=== PATIENT | male | born 1955 ===

== ENCOUNTER 2018-12-25 09:53 | Inpatient (IN) | payer MEDICARE, OTHER ==
[2018-12-25 10:01] VITALS: BMI 31.8
[2018-12-25] MEDS ORDERED: Albuterol-Ipratrop 3 mg / 0.5 (3 ml) UD IH STA (10:48)
[2018-12-25] MEDS ORDERED: Albuterol-Ipratrop 3 mg / 0.5 (3 ml) UD INH STA (10:48)
--- NOTE | 2018-12-25 11:04 | ED PDOC ---
HPI: SOB/CHF/COPD Time Seen by Provider: 12/25/18 10:05 Chief Complaint (Nursing): Shortness Of Breath Chief Complaint (Provider): Shortness Of Breath History Per: Patient, Family History/Exam Limitations: no limitations Onset/Duration Of Symptoms: Days Current Symptoms Are (Timing): Still Present Additional Complaint(s): 63 y/o male with a PMHx of Atrial Fibrillation sent to the ED by [place] [employer] [place] for evaluation of a rapid heart rate. Patient's reports patient was at an appointment with Dr. Murphy prior to arrival and was noted to have a rapid heart rate and fluid in the lungs associated with shortness of breath, swelling to the lower extremity and a cough for the past three days. Patient is non-compliant with Metropolol and Losartan as per . Otherwise, patient denies chest pain, headache, dizziness, weakness, nausea, vomiting and diarrhea. PMD: no provider Buffer Automatic: Shaan Murphy. Past Medical History Reviewed: Historical Data, Nursing Documentation, Vital Signs Vital Signs: Last Vital Signs Temp 98 F 12/25/18 10:00 Pulse 139 H 12/25/18 10:00 Resp 18 12/25/18 10:13 BP 146/96 H 12/25/18 10:00 Pulse Ox 98 12/25/18 10:13 Primary Care Provider: Shaan Murphy - Medical History PMH: Atrial Fibrillation, CHF, HTN - Surgical History Surgical History: No Surg Hx - Family History Family History: States: Unknown Family Hx - Home Medications Home Medications: Ambulatory Orders Medication Instructions Recorded Metoprolol Succinate XL [Toprol XL] 25 mg PO DAILY 12/25/18 - Allergies Allergies/Adverse Reactions: Allergies Allergy/AdvReac Type Severity Reaction Status Date / Time No Known Allergies Allergy Verified 12/25/18 10:06 Review of Systems ROS Statement: Except As Marked, All Systems Reviewed And Found Negative Cardiovascular: Positive for: Other (tachycardia). Negative for: Chest Pain Respiratory: Positive for: Cough, Shortness of Breath Gastrointestinal: Negative for: Nausea, Vomiting, Diarrhea Musculoskeletal: Positive for: Foot Pain (swelling bilaterally) Neurological: Negative for: Headache, Dizziness Physical Exam - Reviewed Nursing Documentation Reviewed: Yes Vital Signs Reviewed: Yes - Physical Exam Appears: Positive for: Uncomfortable Head Exam: Positive for: ATRAUMATIC, NORMOCEPHALIC Skin: Positive for: Normal Color, Warm, Dry Eye Exam: Positive for: Normal appearance, EOMI, PERRL ENT: Positive for: Normal ENT Inspection. Negative for: Nasal Congestion Neck: Positive for: Normal, Painless ROM, Supple Cardiovascular/Chest: Positive for: Tachycardia, Irregularly Irregular Respiratory: Positive for: Decreased Breath Sounds, Other (coarse breath sounds b/l). Negative for: Respiratory Distress Gastrointestinal/Abdominal: Positive for: Normal Exam, Soft. Negative for: Tenderness Back: Positive for: Normal Inspection. Negative for: L CVA Tenderness, R CVA Tenderness Extremity: Positive for: Normal ROM, Pedal Edema (1+ b/l). 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 Negative for: Motor/Sensory Deficits, Facial Droop - Laboratory Results Result Diagrams: 12/25/18 10:57 12/25/18 10:57 Interpretation Of Abn Labs: probnp elevated - ECG ECG: Positive for: Interpreted By Me, Viewed By Me ECG Rhythm: Positive for: Atrial Fibrillation O2 Sat by Pulse Oximetry: 98 (RA) Pulse Ox Interpretation: Normal - Radiology X-Ray: Read By Radiologist X-Ray Interpretation: No Acute Disease - Progress ED Course And Treament: 1200: Stable. Continue tx. HR improving. Will do cardizem drip. 1320: Stable. HR controlled with cardizem. WIll give ntg and lasix for chf. Dr. Jeffrey ovalle. Spoke to Dr. Ornelas and agrees with plan. Will admit. - Critical Care Total Time (In Min): 30 Documented Critical Care: Time excludes all time spent performint seperately billable procedures Medical Decision Making Medical Decision Making: Time: 1049 Impression: Atrial Fibrillation and CHF Plan: -- VBG -- EKG -- B-Type Natriuretic Peptide -- CMP -- Magnesium -- Phosphorus -- Troponin I -- CBC with Differentials -- PTT -- Prothrombin Time -- CXR Portable XR -- Cardizem 10 mg IVP -- Duoneb 3mg/0.5mg (3ml) UD 3 ml INH -- Duoneb 3mg/0.5mg (3ml) UD 3 ml IH -- SOLU-Medrol 125 mg IVP -- Blood Culture -- Urine Culture -- Lease Operator -- IV Insertion -- Vital Signs Q15M -- Peak Flow Pre/Post Tx -- Urinalysis Scribe Attestation: Documented by Kirstie Ray, acting as a scribe Wiley Tijerina MD. Provider Scribe Attestation: All medical record entries made by the Scribe were at my direction and personally dictated by me. I have reviewed the chart and agree that the record accurately reflects my personal performance of the history, physical exam, medical decision making, and the department course for this patient. I have also personally directed, reviewed, and agree with the discharge instructions and disposition. Disposition - Clinical Impression Clinical Impression: CHF exacerbation, Afib - Patient ED Disposition Is Patient to be Admitted: Yes Counseled Patient/Family Regarding: Studies Performed, Diagnosis - Disposition Disposition Time: 10:30 Condition: FAIR - Pt Status Changed To: Hospital Disposition Of: Inpatient - Admit Certification Admit to Inpatient:: After my assessment, the patient will require hospitalization for at least two midnights. This is because of the severity of symptoms shown, intensity of services needed, and/or the medical risk in this patient being treated as an outpatient. - POA Present On Arrival: None
[2018-12-25] MEDS ORDERED: Albuterol-Ipratrop 3 mg / 0.5 (3 ml) UD ONE (11:08)
[2018-12-25 11:14] LABS: VENOUS BLOOD GAS BASE EXCESS 0.3 mmol/L (0.0-2.0); VENOUS BLOOD GAS PCO2 32 mmHg (40-60); VENOUS BLOOD GAS PO2 71 mm/Hg (30-55); VENOUS BLOOD PH 7.47 (7.32-7.43)
[2018-12-25 11:28] LABS: BASO # 0.1 K/uL (0.0-0.2); BASO % 0.6 % (0.0-2.0); EOS % 0.4 % (0.0-4.0); HEMOGLOBIN 12.4 g/dL (12.0-18.0); LYMPH # 1.4 K/uL (1.0-4.3); MEAN CELL VOLUME 91.3 fl (80.0-94.0); MEAN CORPUSCULAR HEMOGLOBIN 30.4 pg (27.0-31.0); MEAN CORPUSCULAR HGB CONC 33.2 g/dL (33.0-37.0); MEAN PLATELET VOLUME 8.7 fl (7.2-11.7); MONO # 0.5 K/uL (0.0-0.8); MONO % 5.6 % (0.0-10.0); NEUT # 7.7 K/uL (1.8-7.0); NEUT % 79.4 % (50.0-75.0); RBC 4.1 Mil/uL (4.40-5.90); RED CELL DISTRIBUTION WIDTH 14.5 % (11.5-14.5); WHITE BLOOD COUNT 9.7 K/uL (4.8-10.8)
[2018-12-25 11:41] LABS: ALB/GLOB RATIO 1.2 (1.0-2.1); ALT/SGPT 63 U/L (21-72); AST/SGOT 54 U/L (17-59); BLOOD UREA NITROGEN 27 mg/dl (9-20); GFR NON-AFRICAN AMERICAN > 60; INR 1.3; PROTHROMBIN TIME 14.5 Seconds (9.8-13.1)
[2018-12-25 11:52] LABS: B-TYPE NATRIURETIC PEPTIDE 6360 pg/ml (0-900)
--- NOTE | 2018-12-25 13:07 | RAD ---
Date of service: 12/25/2018 HISTORY: Sepsis Patient COMPARISON: No prior. TECHNIQUE: 1 view obtained. FINDINGS: LUNGS: No active pulmonary disease. PLEURA: No significant pleural effusion identified, no pneumothorax apparent. CARDIOVASCULAR: No aortic atherosclerotic calcification present. Normal cardiac size. No pulmonary vascular congestion. OSSEOUS STRUCTURES: There is some deformity of the right 5th rib laterally which may reflect an old fracture. VISUALIZED UPPER ABDOMEN: Normal. OTHER FINDINGS: None. IMPRESSION: No active disease.
[2018-12-25] MEDS ORDERED: Aspirin 325 mg EC Tablets PO ONE (13:44)
--- NOTE | 2018-12-25 14:17 | CP.PCM.HP ---
<BoraharmonyYvan zambrano - Last Filed: 12/25/18 14:50> History of Present Illness - History of Present Illness History of Present Illness: CC: johnny been very short of breathe for the last three days HPI: 63 y/o male with PMHx of HTN presented for evaluation from Dr. Murphy's office for worsening SOB and palpitations. Pt reports symptoms started 3 days ago, without any inciting or triggering event. Pt reports SOB has been worsening and he has been having associated orthopnea and CARTER. He reports he lives on the 4th floor and is usually able to walk up without issue, but recently has had to take multiple breaks. He reports practically sleeping upright for the last 3 days on his couch. Reports adherence with metoprolol 25mg QD. Denies having a PMD and reports having seen cardiology in history prior. Reports history of tobacco abuse, but quit >30 years ago. Denies ETOH/Drug abuse. Denies hx of ID/cardiac cath. No other complaints/concerns. ROS: 12 systems reviewed, found to be negative unless otherwise mentioned in HPI PMD: none Cardio: Jeffrey PMHx: HTN Meds: Metoprolol, losartan ALL: NKDA Psurghx: right inguinal hernia repair FamilyHx: denies ID/Stroke/DM/CA/HTN Social: Former smoker, >1ppd for >10 years, quit 30 years ago, denies ETOH/drug abuse Present on Admission - Present on Admission Any Indicators Present on Admission: No History of DVT/PE: No History of Uncontrolled Diabetes: No Urinary Catheter: No Decubitus Ulcer Present: No Past Patient History - Past Social History Smoking Status: Former Smoker Alcohol: None Drugs: Denies Home Situation {Lives}: With Family - CARDIAC Hx Atrial Fibrillation: Yes Hx Congestive Heart Failure: Yes Hx Hypertension: Yes - PSYCHIATRIC Hx Substance Use: No - SURGICAL HISTORY Hx Surgeries: Yes Hx Herniorrhaphy: Yes (right groin) Meds Allergies/Adverse Reactions: Allergies Allergy/AdvReac Type Severity Reaction Status Date / Time No Known Allergies Allergy Verified 12/25/18 10:06 Physical Exam - Constitutional Appears: Non-toxic, No Acute Distress - Head Exam Head Exam: ATRAUMATIC, NORMOCEPHALIC Additional comments: large cyst overlying superior frontal bone - Eye Exam Eye Exam: EOMI, Normal appearance, PERRL - ENT Exam ENT Exam: Mucous Membranes Moist - Neck Exam Neck exam: Positive for: Full Rom, Normal Inspection. Negative for: Lymphadenopathy, Tenderness, Thyromegaly - Respiratory Exam Respiratory Exam: Decreased Breath Sounds, Rales, Wheezes, NORMAL BREATHING PATTERN. absent: Accessory Muscle Use, Clear to Auscultation Bilateral, Prolonged Expiratory Phase, Rhonchi, Respiratory Distress - Cardiovascular Exam Cardiovascular Exam: Irregular Rhythm, +S1, +S2. absent: JVD, Systolic Murmur - GI/Abdominal Exam GI & Abdominal Exam: Normal Bowel Sounds, Soft - Extremities Exam Extremities exam: Positive for: normal capillary refill, normal inspection, pedal pulses present. Negative for: calf tenderness, pedal edema, tenderness - Neurological Exam Neurological exam: Alert, CN II-XII Intact, Normal Gait, Oriented x3 - Psychiatric Exam Psychiatric exam: Normal Affect, Normal Mood - Skin Skin Exam: Dry, Intact, Normal Color, Warm Results - Vital Signs Recent Vital Signs: Last Vital Signs Temp 98 F 12/25/18 10:00 Pulse 130 H 12/25/18 14:04 Resp 20 12/25/18 14:04 BP 138/109 H 12/25/18 14:04 Pulse Ox 96 12/25/18 14:04 - Labs Result Diagrams: 12/25/18 10:57 12/25/18 10:57 Labs: Laboratory Results - last 24 hr 12/25/18 12/25/18 12/25/18 10:57 10:57 10:57 WBC 9.7 RBC 4.10 L Hgb 12.4 Hct 37.4 MCV 91.3 MCH 30.4 MCHC 33.2 RDW 14.5 Plt Count 269 MPV 8.7 Neut % (Auto) 79.4 H Lymph % (Auto) 14.0 L Lares % (Auto) 5.6 Eos % (Auto) 0.4 Baso % (Auto) 0.6 Neut # (Auto) 7.7 H Lymph # (Auto) 1.4 Lares # (Auto) 0.5 Eos # (Auto) 0.0 Baso # (Auto) 0.1 PT 14.5 H INR 1.3 APTT 32.0 pO2 VBG pH VBG pCO2 VBG HCO3 VBG Total CO2 VBG O2 Sat (Calc) VBG Base Excess VBG Potassium Glucose Lactate FiO2 Sodium 138 Potassium 4.0 Chloride 103 Carbon Dioxide 23 Anion Gap 16 BUN 27 H Creatinine 1.1 Est GFR ( Amer) > 60 Est GFR (Non-Af Amer) > 60 Random Glucose 128 H Calcium 9.0 Phosphorus 3.8 Magnesium 1.9 Total Bilirubin 1.1 AST 54 ALT 63 Alkaline Phosphatase 114 Troponin I 0.0620 NT-Pro-B Natriuret Pep 6360 H Total Protein 7.4 Albumin 4.0 Globulin 3.4 Albumin/Globulin Ratio 1.2 Venous Blood Potassium 12/25/18 11:07 WBC RBC Hgb Hct MCV MCH MCHC RDW Plt Count MPV Neut % (Auto) Lymph % (Auto) Lares % (Auto) Eos % (Auto) Baso % (Auto) Neut # (Auto) Lymph # (Auto) Lares # (Auto) Eos # (Auto) Baso # (Auto) PT INR APTT pO2 71 H VBG pH 7.47 H VBG pCO2 32 L VBG HCO3 25.1 VBG Total CO2 24.3 VBG O2 Sat (Calc) 96.5 H VBG Base Excess 0.3 VBG Potassium 4.0 Glucose 111 H Lactate 1.2 FiO2 21.0 Sodium 137.0 Potassium Chloride 106.0 Carbon Dioxide Anion Gap BUN Creatinine Est GFR ( Amer) Est GFR (Non-Af Amer) Random Glucose Calcium Phosphorus Magnesium Total Bilirubin AST ALT Alkaline Phosphatase Troponin I NT-Pro-B Natriuret Pep Total Protein Albumin Globulin Albumin/Globulin Ratio Venous Blood Potassium 4.0 Assessment & Plan - Assessment and Plan (Free Text) Assessment: 63 y/o male with PMHx of HTN admitted for new onset CHF and atrial fibrillation with RVR. Plan: Atrial Fibrillation w RVR -EKG: Afib w RVR ~143bpm -BP stable -CHADS-VASC: 2pts -c/w ASA -s/p cardizem bolus 10mg -currently on cardizem drip, 8mg/hr -initial troponin negative, trending Q6H -TSH/Lipid panel/Urine tox/Hba1c pending -tele monitoring -cardiology consult requested Acute Onset CHF -uncertain if diastolic or systolic dysfunction -no prior history -Pro-BNP: 6360 -BUN/Cr: 27/1.1 -stable H/H, CMP wnl -CXR: mild cardiomegaly, air bronchograms, pulmonary congestion -Echocardiogram pending -Lasix IV 40 mg Q12H -started CLAUDIA/Statin therapy -cardiology consult requested -repeat AM labs HTN -uncontrolled -started lisinopril 10mg QD Diet -heart healthy Prophylaxis -Lovenox 40mg SC QD Code Status -full code <Max Ornelas - Last Filed: 12/25/18 20:16> Results - Vital Signs Recent Vital Signs: Last Vital Signs Temp 98.2 F 12/25/18 19:43 Pulse 85 12/25/18 19:43 Resp 18 12/25/18 19:43 BP 128/92 H 12/25/18 19:43 Pulse Ox 98 12/25/18 19:43 - Labs Result Diagrams: 12/25/18 10:57 12/25/18 10:57 Labs: Laboratory Results - last 24 hr 12/25/18 12/25/18 12/25/18 10:57 10:57 10:57 WBC 9.7 RBC 4.10 L Hgb 12.4 Hct 37.4 MCV 91.3 MCH 30.4 MCHC 33.2 RDW 14.5 Plt Count 269 MPV 8.7 Neut % (Auto) 79.4 H Lymph % (Auto) 14.0 L Lares % (Auto) 5.6 Eos % (Auto) 0.4 Baso % (Auto) 0.6 Neut # (Auto) 7.7 H Lymph # (Auto) 1.4 Lares # (Auto) 0.5 Eos # (Auto) 0.0 Baso # (Auto) 0.1 PT 14.5 H INR 1.3 APTT 32.0 pO2 VBG pH VBG pCO2 VBG HCO3 VBG Total CO2 VBG O2 Sat (Calc) VBG Base Excess VBG Potassium Glucose Lactate FiO2 Sodium 138 Potassium 4.0 Chloride 103 Carbon Dioxide 23 Anion Gap 16 BUN 27 H Creatinine 1.1 Est GFR ( Amer) > 60 Est GFR (Non-Af Amer) > 60 Random Glucose 128 H Calcium 9.0 Phosphorus 3.8 Magnesium 1.9 Total Bilirubin 1.1 AST 54 ALT 63 Alkaline Phosphatase 114 Troponin I 0.0620 NT-Pro-B Natriuret Pep 6360 H Total Protein 7.4 Albumin 4.0 Globulin 3.4 Albumin/Globulin Ratio 1.2 Triglycerides Cholesterol LDL Cholesterol Direct HDL Cholesterol TSH 3rd Generation Venous Blood Potassium Urine Color Urine Clarity Urine pH Ur Specific [place] Urine Protein Urine Glucose (UA) Urine Ketones Urine Blood Urine Nitrate Urine Bilirubin Urine Urobilinogen Ur Leukocyte Esterase Urine RBC (Auto) Urine Microscopic WBC Ur Squamous Epith Cells Urine Bacteria Hyaline Casts Granular Casts (Auto) Urine Opiates Screen Urine Methadone Screen Ur Barbiturates Screen Ur Phencyclidine Scrn Ur Amphetamines Screen U Benzodiazepines Scrn U Oth Cocaine Metabols U Cannabinoids Screen 12/25/18 12/25/18 12/25/18 11:07 14:54 15:00 WBC RBC Hgb Hct MCV MCH MCHC RDW Plt Count MPV Neut % (Auto) Lymph % (Auto) Lares % (Auto) Eos % (Auto) Baso % (Auto) Neut # (Auto) Lymph # (Auto) Lares # (Auto) Eos # (Auto) Baso # (Auto) PT INR APTT pO2 71 H VBG pH 7.47 H VBG pCO2 32 L VBG HCO3 25.1 VBG Total CO2 24.3 VBG O2 Sat (Calc) 96.5 H VBG Base Excess 0.3 VBG Potassium 4.0 Glucose 111 H Lactate 1.2 FiO2 21.0 Sodium 137.0 Potassium Chloride 106.0 Carbon Dioxide Anion Gap BUN Creatinine Est GFR ( Amer) Est GFR (Non-Af Amer) Random Glucose Calcium Phosphorus Magnesium Total Bilirubin AST ALT Alkaline Phosphatase Troponin I NT-Pro-B Natriuret Pep Total Protein Albumin Globulin Albumin/Globulin Ratio Triglycerides 72 Cholesterol 124 LDL Cholesterol Direct 81 HDL Cholesterol 29 L TSH 3rd Generation 0.49 Venous Blood Potassium 4.0 Urine Color Yellow Urine Clarity Slighty-cloudy Urine pH 6.0 Ur Specific [place] 1.017 Urine Protein 100 Urine Glucose (UA) Neg Urine Ketones Negative Urine Blood Negative Urine Nitrate Negative Urine Bilirubin Negative Urine Urobilinogen 0.2-1.0 Ur Leukocyte Esterase Neg Urine RBC (Auto) 2 Urine Microscopic WBC 2 Ur Squamous Epith Cells < 1 Urine Bacteria Rare Hyaline Casts 6-10 H Granular Casts (Auto) 3 Urine Opiates Screen Urine Methadone Screen Ur Barbiturates Screen Ur Phencyclidine Scrn Ur Amphetamines Screen U Benzodiazepines Scrn U Oth Cocaine Metabols U Cannabinoids Screen 12/25/18 12/25/18 15:00 17:05 WBC RBC Hgb Hct MCV MCH MCHC RDW Plt Count MPV Neut % (Auto) Lymph % (Auto) Lares % (Auto) Eos % (Auto) Baso % (Auto) Neut # (Auto) Lymph # (Auto) Lares # (Auto) Eos # (Auto) Baso # (Auto) PT INR APTT pO2 VBG pH VBG pCO2 VBG HCO3 VBG Total CO2 VBG O2 Sat (Calc) VBG Base Excess VBG Potassium Glucose Lactate FiO2 Sodium Potassium Chloride Carbon Dioxide Anion Gap BUN Creatinine Est GFR ( Amer) Est GFR (Non-Af Amer) Random Glucose Calcium Phosphorus Magnesium Total Bilirubin AST ALT Alkaline Phosphatase Troponin I 0.0500 NT-Pro-B Natriuret Pep Total Protein Albumin Globulin Albumin/Globulin Ratio Triglycerides Cholesterol LDL Cholesterol Direct HDL Cholesterol TSH 3rd Generation Venous Blood Potassium Urine Color Urine Clarity Urine pH Ur Specific [place] Urine Protein Urine Glucose (UA) Urine Ketones Urine Blood Urine Nitrate Urine Bilirubin Urine Urobilinogen Ur Leukocyte Esterase Urine RBC (Auto) Urine Microscopic WBC Ur Squamous Epith Cells Urine Bacteria Hyaline Casts Granular Casts (Auto) Urine Opiates Screen Negative Urine Methadone Screen Negative Ur Barbiturates Screen Negative Ur Phencyclidine Scrn Negative Ur Amphetamines Screen Negative U Benzodiazepines Scrn Negative U Oth Cocaine Metabols Negative U Cannabinoids Screen Negative Attending/Attestation - Attestation I have personally seen and examined this patient.: Yes I have fully participated in the care of the patient.: Yes I have reviewed all pertinent clinical information: Yes Notes (Text): 12/25/18 20:16 Patient seen and examined with resident. Case discussed and agreed with assessment.
[2018-12-25 15:21] LABS: GRANULAR CAST 3 /lpf (0-1); SQUAMOUS EPITHIAL < 1 /hpf (0-5); URINE BACTERIA RARE (<OCC); URINE BILIRUBIN NEGATIVE (NEGATIVE); URINE BLOOD NEGATIVE (NEGATIVE); URINE CLARITY SLIGHTY-CLOUDY (Clear); URINE COLOR YELLOW (YELLOW); URINE GLUCOSE (UA) NEG (NEGATIVE); URINE LEUKOCYTE ESTERASE NEG Leu/uL (Negative); URINE PROTEIN 100 mg/dL (NEGATIVE); URINE UROBILINOGEN 0.2-1.0 mg/dL (0.2-1.0)
[2018-12-25 15:44] LABS: BARBITURATES, UR NEGATIVE (NEGATIVE); BENZODIAZEPINES, UR NEGATIVE (NEGATIVE); OPIATES, UR NEGATIVE (NEGATIVE); PHENCYCLIDINE, UR NEGATIVE (NEGATIVE)
--- NOTE | 2018-12-25 17:30 | CARD ---
APPROVED REPORT Date of service: 12/25/2018 EKG Measurement Heart [id number] <Conclusion> Atrial fibrillation with rapid ventricular response Abnormal ECG
[2018-12-26 05:59] LABS: HEMOGLOBIN 12.3 g/dL (12.0-18.0); MEAN CELL VOLUME 90.7 fl (80.0-94.0); MEAN CORPUSCULAR HEMOGLOBIN 30.4 pg (27.0-31.0); MEAN CORPUSCULAR HGB CONC 33.5 g/dL (33.0-37.0); RBC 4.03 Mil/uL (4.40-5.90); RED CELL DISTRIBUTION WIDTH 14.1 % (11.5-14.5); WHITE BLOOD COUNT 9.4 K/uL (4.8-10.8)
[2018-12-26 06:06] LABS: ALB/GLOB RATIO 1.1 (1.0-2.1); ALBUMIN 3.8 g/dL (3.5-5.0); ALT/SGPT 50 U/L (21-72); AST/SGOT 42 U/L (17-59); BLOOD UREA NITROGEN 29 mg/dl (9-20); CALCIUM 8.8 mg/dL (8.4-10.2); GFR NON-AFRICAN AMERICAN > 60
[2018-12-26] MEDS ORDERED: Potassium Chloride 20 mEq ER Tab PO ONE (07:51)
--- NOTE | 2018-12-26 08:54 | CP.PCM.CON ---
History of Present Illness - History of Present Illness History of Present Illness: Ilan Resendez, PGY1 Consult Note for Dr. Murphy: CC: SOB Consulted for: CHF exacerbation Pt was 63 yo M with pmhx of HTN who presented from cardiology clinic for SOB and palpitations. Pt states that he has been having increased SOB x 3 days. Pt also claimed that he has been sleeping upright almost due to his inability to breath when laying down flat. Pt seen this AM and is able to lay down flat without complaint. Pt continues to admit to palpitaitons but states that his SOB has improved. Otherwise pt had no other acute complaints at this time. Pt denies fevers, chills, headache, lightheadedness, SOB, chest pain, abd pain, n/v, c/d or dysuria. Review of Systems - Review of Systems Review of Systems: 12 point ROS reviewed and negative except for noted in HPI above. Past Patient History - Past Social History Smoking Status: Never Smoked - CARDIAC Hx Atrial Fibrillation: Yes Hx Congestive Heart Failure: Yes Hx Hypertension: Yes - MUSCULOSKELETAL/RHEUMATOLOGICAL Hx Falls: No - PSYCHIATRIC Hx Substance Use: No - SURGICAL HISTORY Hx Surgeries: Yes Hx Herniorrhaphy: Yes (right groin) Meds Allergies/Adverse Reactions: Allergies Allergy/AdvReac Type Severity Reaction Status Date / Time No Known Allergies Allergy Verified 12/25/18 10:06 - Medications Medications: Current Medications Atorvastatin Calcium (Lipitor) 20 mg PO HS [facility] Last Admin: 12/25/18 22:47 Dose: 20 mg Enoxaparin Sodium (Lovenox) 40 mg SC DAILY [facility]; Protocol Furosemide (Lasix) 40 mg IV Q12H [facility] Last Admin: 12/25/18 22:46 Dose: 40 mg Lisinopril (Zestril) 10 mg PO DAILY [facility] Metoprolol Tartrate (Lopressor) 50 mg PO Q12 [facility] Last Admin: 12/25/18 22:48 Dose: Not Given Ondansetron HCl (Zofran Inj) 4 mg IVP Q6 PRN PRN Reason: Nausea/Vomiting Physical Exam - Constitutional Appears: Non-toxic, No Acute Distress - Head Exam Head Exam: ATRAUMATIC, NORMAL INSPECTION, NORMOCEPHALIC - Eye Exam Eye Exam: EOMI, Normal appearance, PERRL - Neck Exam Additional comments: JVD noted - Respiratory Exam Respiratory Exam: Clear to Auscultation Bilateral, NORMAL BREATHING PATTERN. absent: Accessory Muscle Use, Rales, Rhonchi, Wheezes, Respiratory Distress, Stridor - Cardiovascular Exam Cardiovascular Exam: Irregular Rhythm, +S1, +S2. absent: Gallop, Rubs - GI/Abdominal Exam GI & Abdominal Exam: Normal Bowel Sounds, Soft. absent: Diminished Bowel Sounds, Firm, Guarding, Tenderness - Extremities Exam Extremities exam: Positive for: normal capillary refill, normal inspection, pedal pulses present - Back Exam Back exam: NORMAL INSPECTION. absent: CVA tenderness (L), CVA tenderness (R) - Neurological Exam Neurological exam: Alert, Oriented x3 - Psychiatric Exam Psychiatric exam: Normal Affect, Normal Mood - Skin Skin Exam: Dry, Normal Color, Warm Results - Vital Signs Recent Vital Signs: Last Vital Signs Temp 97.7 F 12/26/18 08:06 Pulse 65 12/26/18 08:06 Resp 20 12/26/18 08:06 BP 124/83 12/26/18 08:06 Pulse Ox 97 12/26/18 08:06 - Labs Result Diagrams: 12/26/18 05:15 12/26/18 05:15 Labs: Laboratory Results - last 24 hr 12/25/18 12/25/18 12/25/18 10:57 10:57 10:57 WBC 9.7 RBC 4.10 L Hgb 12.4 Hct 37.4 MCV 91.3 MCH 30.4 MCHC 33.2 RDW 14.5 Plt Count 269 MPV 8.7 Neut % (Auto) 79.4 H Lymph % (Auto) 14.0 L [place] % (Auto) 5.6 Eos % (Auto) 0.4 Baso % (Auto) 0.6 Neut # (Auto) 7.7 H Lymph # (Auto) 1.4 [place] # (Auto) 0.5 Eos # (Auto) 0.0 Baso # (Auto) 0.1 PT 14.5 H INR 1.3 APTT 32.0 pO2 VBG pH VBG pCO2 VBG HCO3 VBG Total CO2 VBG O2 Sat (Calc) VBG Base Excess VBG Potassium Glucose Lactate FiO2 Sodium 138 Potassium 4.0 Chloride 103 Carbon Dioxide 23 Anion Gap 16 BUN 27 H Creatinine 1.1 Est GFR ( Amer) > 60 Est GFR (Non-Af Amer) > 60 Random Glucose 128 H Hemoglobin A1c Calcium 9.0 Phosphorus 3.8 Magnesium 1.9 Total Bilirubin 1.1 AST 54 ALT 63 Alkaline Phosphatase 114 Troponin I 0.0620 NT-Pro-B Natriuret Pep 6360 H Total Protein 7.4 Albumin 4.0 Globulin 3.4 Albumin/Globulin Ratio 1.2 Triglycerides Cholesterol LDL Cholesterol Direct HDL Cholesterol TSH 3rd Generation Venous Blood Potassium Urine Color Urine Clarity Urine pH Ur Specific [place] Urine Protein Urine Glucose (UA) Urine Ketones Urine Blood Urine Nitrate Urine Bilirubin Urine Urobilinogen Ur Leukocyte Esterase Urine RBC (Auto) Urine Microscopic WBC Ur Squamous Epith Cells Urine Bacteria Hyaline Casts Granular Casts (Auto) Urine Opiates Screen Urine Methadone Screen Ur Barbiturates Screen Ur Phencyclidine Scrn Ur Amphetamines Screen U Benzodiazepines Scrn U Oth Cocaine Metabols U Cannabinoids Screen 12/25/18 12/25/18 12/25/18 11:07 14:54 14:54 WBC RBC Hgb Hct MCV MCH MCHC RDW Plt Count MPV Neut % (Auto) Lymph % (Auto) [place] % (Auto) Eos % (Auto) Baso % (Auto) Neut # (Auto) Lymph # (Auto) [place] # (Auto) Eos # (Auto) Baso # (Auto) PT INR APTT pO2 71 H VBG pH 7.47 H VBG pCO2 32 L VBG HCO3 25.1 VBG Total CO2 24.3 VBG O2 Sat (Calc) 96.5 H VBG Base Excess 0.3 VBG Potassium 4.0 Glucose 111 H Lactate 1.2 FiO2 21.0 Sodium 137.0 Potassium Chloride 106.0 Carbon Dioxide Anion Gap BUN Creatinine Est GFR ( Amer) Est GFR (Non-Af Amer) Random Glucose Hemoglobin A1c 6.2 Calcium Phosphorus Magnesium Total Bilirubin AST ALT Alkaline Phosphatase Troponin I NT-Pro-B Natriuret Pep Total Protein Albumin Globulin Albumin/Globulin Ratio Triglycerides 72 Cholesterol 124 LDL Cholesterol Direct 81 HDL Cholesterol 29 L TSH 3rd Generation 0.49 Venous Blood Potassium 4.0 Urine Color Urine Clarity Urine pH Ur Specific [place] Urine Protein Urine Glucose (UA) Urine Ketones Urine Blood Urine Nitrate Urine Bilirubin Urine Urobilinogen Ur Leukocyte Esterase Urine RBC (Auto) Urine Microscopic WBC Ur Squamous Epith Cells Urine Bacteria Hyaline Casts Granular Casts (Auto) Urine Opiates Screen Urine Methadone Screen Ur Barbiturates Screen Ur Phencyclidine Scrn Ur Amphetamines Screen U Benzodiazepines Scrn U Oth Cocaine Metabols U Cannabinoids Screen 12/25/18 12/25/18 12/25/18 15:00 15:00 17:05 WBC RBC Hgb Hct MCV MCH MCHC RDW Plt Count MPV Neut % (Auto) Lymph % (Auto) [place] % (Auto) Eos % (Auto) Baso % (Auto) Neut # (Auto) Lymph # (Auto) [place] # (Auto) Eos # (Auto) Baso # (Auto) PT INR APTT pO2 VBG pH VBG pCO2 VBG HCO3 VBG Total CO2 VBG O2 Sat (Calc) VBG Base Excess VBG Potassium Glucose Lactate FiO2 Sodium Potassium Chloride Carbon Dioxide Anion Gap BUN Creatinine Est GFR ( Amer) Est GFR (Non-Af Amer) Random Glucose Hemoglobin A1c Calcium Phosphorus Magnesium Total Bilirubin AST ALT Alkaline Phosphatase Troponin I 0.0500 NT-Pro-B Natriuret Pep Total Protein Albumin Globulin Albumin/Globulin Ratio Triglycerides Cholesterol LDL Cholesterol Direct HDL Cholesterol TSH 3rd Generation Venous Blood Potassium Urine Color Yellow Urine Clarity Slighty-cloudy Urine pH 6.0 Ur Specific [place] 1.017 Urine Protein 100 Urine Glucose (UA) Neg Urine Ketones Negative Urine Blood Negative Urine Nitrate Negative Urine Bilirubin Negative Urine Urobilinogen 0.2-1.0 Ur Leukocyte Esterase Neg Urine RBC (Auto) 2 Urine Microscopic WBC 2 Ur Squamous Epith Cells < 1 Urine Bacteria Rare Hyaline Casts 6-10 H Granular Casts (Auto) 3 Urine Opiates Screen Negative Urine Methadone Screen Negative Ur Barbiturates Screen Negative Ur Phencyclidine Scrn Negative Ur Amphetamines Screen Negative U Benzodiazepines Scrn Negative U Oth Cocaine Metabols Negative U Cannabinoids Screen Negative 12/26/18 12/26/18 12/26/18 05:15 05:15 06:00 WBC 9.4 RBC 4.03 L Hgb 12.3 Hct 36.6 MCV 90.7 MCH 30.4 MCHC 33.5 RDW 14.1 Plt Count 287 MPV Neut % (Auto) Lymph % (Auto) [place] % (Auto) Eos % (Auto) Baso % (Auto) Neut # (Auto) Lymph # (Auto) [place] # (Auto) Eos # (Auto) Baso # (Auto) PT INR APTT pO2 VBG pH VBG pCO2 VBG HCO3 VBG Total CO2 VBG O2 Sat (Calc) VBG Base Excess VBG Potassium Glucose Lactate FiO2 Sodium 137 Potassium 3.4 L Chloride 97 L Carbon Dioxide 28 Anion Gap 15 BUN 29 H Creatinine 1.0 Est GFR ( Amer) > 60 Est GFR (Non-Af Amer) > 60 Random Glucose 149 H Hemoglobin A1c Calcium 8.8 Phosphorus Magnesium Total Bilirubin 1.2 AST 42 ALT 50 Alkaline Phosphatase 99 Troponin I 0.0350 NT-Pro-B Natriuret Pep Total Protein 7.1 Albumin 3.8 Globulin 3.3 Albumin/Globulin Ratio 1.1 Triglycerides Cholesterol LDL Cholesterol Direct HDL Cholesterol TSH 3rd Generation Venous Blood Potassium Urine Color Urine Clarity Urine pH Ur Specific [place] Urine Protein Urine Glucose (UA) Urine Ketones Urine Blood Urine Nitrate Urine Bilirubin Urine Urobilinogen Ur Leukocyte Esterase Urine RBC (Auto) Urine Microscopic WBC Ur Squamous Epith Cells Urine Bacteria Hyaline Casts Granular Casts (Auto) Urine Opiates Screen Urine Methadone Screen Ur Barbiturates Screen Ur Phencyclidine Scrn Ur Amphetamines Screen U Benzodiazepines Scrn U Oth Cocaine Metabols U Cannabinoids Screen Assessment & Plan - Assessment and Plan (Free Text) Plan: - Possible conversion with GRUPO - Eliquis due to hx of afib - Lipitor 20 qd - Lasix 40 q12 - Zestril 10 - Lopressor 100 BID
[2018-12-26] MEDS ORDERED: Enoxaparin 40 mg Syringe SC SCH (09:00)
--- NOTE | 2018-12-26 11:50 | CP.PCM.PN ---
<Nuvia Sandoval - Last Filed: 12/26/18 14:59> Subjective - Date & Time of Evaluation Date of Evaluation: 12/26/18 Time of Evaluation: 09:15 - Subjective Subjective: Patient seen and examined at bedside. Objective - Vital Signs/Intake and Output Vital Signs (last 24 hours): Temp Pulse Resp BP Pulse Ox 97.7 F 68 20 124/83 97 12/26/18 08:06 12/26/18 09:11 12/26/18 08:06 12/26/18 09:11 12/26/18 08:06 - Medications Medications: Current Medications Atorvastatin Calcium (Lipitor) 20 mg PO HS [facility] Last Admin: 12/25/18 22:47 Dose: 20 mg Enoxaparin Sodium (Lovenox) 40 mg SC DAILY [facility]; Protocol Last Admin: 12/26/18 09:11 Dose: 40 mg Furosemide (Lasix) 40 mg IV Q12H [facility] Last Admin: 12/26/18 09:09 Dose: 40 mg Lisinopril (Zestril) 10 mg PO DAILY [facility] Last Admin: 12/26/18 09:11 Dose: 10 mg Metoprolol Tartrate (Lopressor) 50 mg PO Q12 [facility] Last Admin: 12/26/18 09:10 Dose: 50 mg Ondansetron HCl (Zofran Inj) 4 mg IVP Q6 PRN PRN Reason: Nausea/Vomiting - Labs Labs: 12/26/18 05:15 12/26/18 05:15 PT 14.5 Seconds (9.8-13.1) H 12/25/18 10:57 INR 1.3 12/25/18 10:57 APTT 32.0 Seconds (25.6-37.1) 12/25/18 10:57 - Constitutional Appears: Non-toxic, No Acute Distress, Older Than Stated Age - Eye Exam Eye Exam: Normal appearance - ENT Exam ENT Exam: Mucous Membranes Moist - Respiratory Exam Respiratory Exam: Clear to Ausculation Bilateral, NORMAL BREATHING PATTERN. absent: Accessory Muscle Use, Chest Wall Tenderness, Decreased Breath Sounds, Prolonged Expiratory Phase, Rales, Rhonchi, Wheezes, Respiratory Distress, Stridor - Cardiovascular Exam Cardiovascular Exam: REGULAR RHYTHM, +S1, +S2 Additional comments: JVD - Extremities Exam Extremities Exam: Normal Capillary Refill, Normal Inspection. absent: Calf Tenderness, Joint Swelling, Pedal Edema, Tenderness - Back Exam Back Exam: NORMAL INSPECTION - Neurological Exam Neurological Exam: Alert, Awake, Oriented x3 - Psychiatric Exam Psychiatric exam: Normal Affect, Normal Mood - Skin Skin Exam: Dry, Intact, Normal Color, Warm Assessment and Plan - Assessment and Plan (Free Text) Assessment: 63 y/o male with PMHx of HTN admitted for new onset CHF and atrial fibrillation with RVR. Plan: Atrial Fibrillation w RVR -EKG: Afib w RVR ~143bpm -BP stable -CHADS-VASC: 2pts - c/w ASA - s/p cardizem bolus 10mg and drip -Troponin negative x3 - Metoprolol 100mg BID - Eliquis 5mg BID -tele monitoring -cardiology consult requested- Dr. Murphy Acute Onset CHF -uncertain if diastolic or systolic dysfunction -no prior history -Pro-BNP: 6360 -BUN/Cr: 27/1.1 -stable H/H, CMP wnl -CXR: mild cardiomegaly, air bronchograms, pulmonary congestion -Echocardiogram pending -Lasix IV 40 mg Q12H -started CLAUDIA/Statin therapy -cardiology consult requested- Dr. Murphy HTN -uncontrolled -started lisinopril 10mg QD Diet -heart healthy Prophylaxis -Lovenox 40mg SC QD Code Status -full code <Harriett Irving - Last Filed: 12/26/18 17:11> Objective - Vital Signs/Intake and Output Vital Signs (last 24 hours): Temp Pulse Resp BP Pulse Ox 97.7 F 88 18 116/72 96 12/26/18 15:54 12/26/18 15:54 12/26/18 15:54 12/26/18 15:54 12/26/18 15:54 - Medications Medications: Current Medications Apixaban (Eliquis) 5 mg PO BID [facility]; Protocol Atorvastatin Calcium (Lipitor) 20 mg PO HS [facility] Last Admin: 12/25/18 22:47 Dose: 20 mg Furosemide (Lasix) 40 mg IV Q12H [facility] Last Admin: 12/26/18 09:09 Dose: 40 mg Lisinopril (Zestril) 10 mg PO DAILY [facility] Last Admin: 12/26/18 09:11 Dose: 10 mg Metoprolol Tartrate (Lopressor) 100 mg PO Q12 [facility] Ondansetron HCl (Zofran Inj) 4 mg IVP Q6 PRN PRN Reason: Nausea/Vomiting - Labs Labs: 12/26/18 05:15 12/26/18 05:15 PT 14.5 Seconds (9.8-13.1) H 12/25/18 10:57 INR 1.3 12/25/18 10:57 APTT 32.0 Seconds (25.6-37.1) 12/25/18 10:57 Attending/Attestation - Attestation I have personally seen and examined this patient.: Yes I have fully participated in the care of the patient.: Yes I have reviewed all pertinent clinical information, including history, physical exam and plan: Yes Notes (Text): Atrial Fibrillation with RVR Acute CHF exacerbation, systolic and Diastolic Dysfunction EF 45% Severe MR - Pt still with SOB, JVD, HR 90s - Pt is off Cardizem drip - increase Metoprolol to 100 mg bid as discussed with Dr Murphy -maria teresa Archer, d/c Lovenox - cont IV Lasix 40 mg q 12 -Plan for GRUPO and poss Ablation as outpt - we will cont to diurese pt overnight and plan to d/c pt in am if improved
--- NOTE | 2018-12-26 12:47 | CARD ---
APPROVED REPORT Date of service: 12/26/2018 EXAM: Two-dimensional and M-mode echocardiogram with Doppler and color Doppler. Other Information Quality : ExcellentRhythm : NSR INDICATION Atrial Fibrillation Congestive Heart Failure 2D DIMENSIONS IVSd1.29 (0.7-1.1cm)LVDd6.06 (3.9-5.9cm) LVOT Diameter1.87 (1.8-2.4cm)PWd1.20 (0.7-1.1cm) IVSs1.54 (0.8-1.2cm)LVDs4.73 (2.5-4.0cm) FS (%) 22.0 %PWs1.57 (0.8-1.2cm) M-Mode DIMENSIONS Left Atrium (MM)7.28 (2.5-4.0cm)IVSd1.32 (0.7-1.1cm) Aortic Root3.47 (2.2-3.7cm)LVDd5.53 (4.0-5.6cm) Aortic Cusp Exc.2.05 (1.5-2.0cm)PWd1.26 (0.7-1.1cm) IVSs1.49 cmFS (%) 14 % LVDs4.76 (2.0-3.8cm)PWs1.46 cm Aortic Valve AoV Peak Bttcucey75.7cm/sAoV VTI14.2cmAO Peak GR.4mmHg LVOT Peak Bsxphzyi46.1cm/sLVOT VTI14.07cmAO Mean GR.2mmHg Mitral Valve MV E Ylzxqqkx048.1cm/sMV DECEL [id number] A Gnncwnrw81.5cm/s MV LZD21stF/A ratio3.6MVA (PHT)5.72cm2 TDI Lateral E' Peak V12.79cm/sMedial E' Peak V10.43cm/sE/Lateral E'8.9 E/Medial E'10.9 Tricuspid Valve TR Peak [id number]/sRAP [id number] Peak Gr.33mmHg [id number] LEFT VENTRICLE The Left Ventricle is mildly dilated. There is normal left ventricular wall thickness. The systolic function is mildly to moderately impaired. The estimated ejection fraction is -45% There is global hypokinesis of the left ventricle. The left ventricular diastolic function cannot be assessed due to underlying atrial fibrillation. No left ventricle thrombus noted on this study. There is no ventricular septal defect visualized. There is no left ventricular aneurysm. There is no mass noted in the left ventricle. RIGHT VENTRICLE The right ventricle is normal size. There is normal right ventricular wall thickness. The right ventricular systolic function is normal. ATRIA The left atrium is severely dilated. The right atrium size is normal. The interatrial septum is intact with no evidence for an atrial septal defect. AORTIC VALVE The aortic valve is normal in structure. No aortic regurgitation is present. There is no aortic valvular stenosis. There is no aortic valvular vegetation. MITRAL VALVE The mitral valve is normal in structure. There is no evidence of mitral valve prolapse. There is no mitral valve stenosis. There is severe mitral valve regurgitation noted. TRICUSPID VALVE The tricuspid valve is normal in structure. There is moderate tricuspid valve regurgitation noted. RVSP is calculated at 50 mm Hg. There is no tricuspid valve prolapse or vegetation. There is no tricuspid valve stenosis. PULMONIC VALVE The pulmonary valve is normal in structure. There is mild pulmonic valvular regurgitation. There is no pulmonic valvular stenosis. GREAT VESSELS The aortic root is normal in size. The ascending aorta is normal in size. The pulmonary artery is normal. The IVC is dilated in size and collapses <50% with inspiration. PERICARDIAL EFFUSION There is no pericardial effusion. There is no pleural effusion. <Conclusion> The Left Ventricle is mildly dilated. The systolic function is mildly to moderately impaired. The estimated ejection fraction is -45% There is global hypokinesis of the left ventricle. The left ventricular diastolic function cannot be assessed due to underlying atrial fibrillation. The left atrium is severely dilated. There is severe mitral valve regurgitation noted. There is moderate tricuspid valve regurgitation noted. RVSP is calculated at 50 mm Hg. The IVC is dilated in size and collapses <50% with inspiration.
[2018-12-27 07:53] LABS: HEMOGLOBIN 13.3 g/dL (12.0-18.0); RBC 4.48 Mil/uL (4.40-5.90); WHITE BLOOD COUNT 14.8 K/uL (4.8-10.8)
[2018-12-27 07:57] LABS: MEAN CELL VOLUME 90.9 fl (80.0-94.0); MEAN CORPUSCULAR HEMOGLOBIN 29.7 pg (27.0-31.0); MEAN CORPUSCULAR HGB CONC 32.7 g/dL (33.0-37.0); RED CELL DISTRIBUTION WIDTH 14.6 % (11.5-14.5)
[2018-12-27 07:59] VITALS: RESP 20
[2018-12-27 08:12] LABS: BLOOD UREA NITROGEN 45 mg/dl (9-20); CALCIUM 8.8 mg/dL (8.4-10.2); GFR NON-AFRICAN AMERICAN 55
--- NOTE | 2018-12-27 09:53 | CP.PCM.DIS ---
<Nuvia Sandoval - Last Filed: 12/27/18 11:04> Provider - Provider Date of Admission: 12/25/18 13:40 Attending physician: Max Ornelas MD Consults: 12/25/18 13:40 Cardiology Consult Stat Comment: Consulting Provider: Shaan Murphy Consulting Physician: Shaan Murphy Reason for Consult: afib and chf Time Spent in preparation of Discharge (in minutes): 30 Diagnosis - Discharge Diagnosis (1) Afib Status: Acute Comment: -EKG: Afib w RVR ~143bpm. -CHADS-VASC: 2pts. - c/w ASA. - s/p c ardizem bolus 10mg and drip. -Troponin negative x3. - Metoprolol 100mg BID. - Eliquis 5mg BID. -cardiology consult requested- Dr. Murphy- will follow up with Dr. Murphy for cardioversion and GRUPO as outpatient. (2) CHF exacerbation Status: Acute Comment: -Combined systolic and diastolic dysfunction. -no prior history. -Pro-BNP: 6360. -BUN/Cr: 27/1.1. -stable H/H, CMP wnl. -CXR: mild cardiomegaly, air bronchograms, pulmonary congestion. -Echocardiogram: combined systolic and diastolic dysfunction; EF: 45% ; Pulmonary HTN. -Lasix IV 40 mg Q12H during hospital stay. -started CLAUDIA/Statin therapy. -cardiology consult requested- Dr. Murphy- increase Metoprolol 100mg BID; Eliquis 5 mg BID; (3) Pulmonary HTN Status: Acute Comment: - RVSP 50mmHG on Echo Hospital Course - Lab Results Lab Results: Micro Results 12/25/18 10:57 Blood Blood Culture - Preliminary NO GROWTH AFTER 24 HOURS 12/25/18 11:12 Blood Blood Culture - Preliminary NO GROWTH AFTER 24 HOURS 12/25/18 15:00 Urine Random Urine Culture - Final No Growth (<1,000 CFU/ML) Most Recent Lab Values WBC 14.8 K/uL (4.8-10.8) H D 12/27/18 07:26 RBC 4.48 Mil/uL (4.40-5.90) 12/27/18 07:26 Hgb 13.3 g/dL (12.0-18.0) 12/27/18 07:26 Hct 40.7 % (35.0-51.0) 12/27/18 07: MCV 90.9 fl (80.0-94.0) 12/27/18 07: MCH 29.7 pg (27.0-31.0) 12/27/18 07: MCHC 32.7 g/dL (33.0-37.0) L 12/27/18 07: RDW 14.6 % (11.5-14.5) H 12/27/18 07:26 Plt Count 330 K/uL (130-400) 12/27/18 07: MPV 8.7 fl (7.2-11.7) 12/25/18 10:57 Neut % (Auto) 79.4 % (50.0-75.0) H 12/25/18 10:57 Lymph % (Auto) 14.0 % (20.0-40.0) L 12/25/18 10:57 Burnett % (Auto) 5.6 % (0.0-10.0) 12/25/18 10:57 Eos % (Auto) 0.4 % (0.0-4.0) 12/25/18 10:57 Baso % (Auto) 0.6 % (0.0-2.0) 12/25/18 10:57 Neut # (Auto) 7.7 K/uL (1.8-7.0) H 12/25/18 10:57 Lymph # (Auto) 1.4 K/uL (1.0-4.3) 12/25/18 10:57 Burnett # (Auto) 0.5 K/uL (0.0-0.8) 12/25/18 10:57 Eos # (Auto) 0.0 K/uL (0.0-0.7) 12/25/18 10:57 Baso # (Auto) 0.1 K/uL (0.0-0.2) 12/25/18 10:57 PT 14.5 Seconds (9.8-13.1) H 12/25/18 10:57 INR 1.3 12/25/18 10:57 APTT 32.0 Seconds (25.6-37.1) 12/25/18 10:57 pO2 71 mm/Hg (30-55) H 12/25/18 11:07 VBG pH 7.47 (7.32-7.43) H 12/25/18 11:07 VBG pCO2 32 mmHg (40-60) L 12/25/18 11:07 VBG HCO3 25.1 mmol/L 12/25/18 11:07 VBG Total CO2 24.3 mmol/L (22-28) 12/25/18 11:07 VBG O2 Sat (Calc) 96.5 % (40-65) H 12/25/18 11:07 VBG Base Excess 0.3 mmol/L (0.0-2.0) 12/25/18 11:07 VBG Potassium 4.0 mmol/L (3.6-5.2) 12/25/18 11:07 Sodium 137.0 mmol/L (132-148) 12/25/18 11:07 Chloride 106.0 mmol/L (98-107) 12/25/18 11:07 Glucose 111 mg/dL (75-110) H 12/25/18 11:07 Lactate 1.2 mmol/L (0.7-2.1) 12/25/18 11:07 FiO2 21.0 % 12/25/18 11:07 Sodium 136 mmol/l (132-148) 12/27/18 07:26 Potassium 4.0 MMOL/L (3.6-5.0) 12/27/18 07:26 Chloride 95 mmol/L (98-107) L 12/27/18 07:26 Carbon Dioxide 32 mmol/L (22-30) H 12/27/18 07:26 Anion Gap 13 (10-20) 12/27/18 07:26 BUN 45 mg/dl (9-20) H 12/27/18 07:26 Creatinine 1.3 mg/dl (0.8-1.5) 12/27/18 07:26 Est GFR ( Amer) > 60 12/27/18 07:26 Est GFR (Non-Af Amer) 55 12/27/18 07:26 POC Glucose (mg/dL) 115 mg/dL (65-110) H 12/27/18 05:30 Random Glucose 107 mg/dL (75-110) 12/27/18 07:26 Hemoglobin A1c 6.2 % (4.2-6.5) 12/25/18 14:54 Calcium 8.8 mg/dL (8.4-10.2) 12/27/18 07:26 Phosphorus 3.8 mg/dl (2.5-4.5) 12/25/18 10:57 Magnesium 1.9 MG/DL (1.6-2.3) 12/25/18 10:57 Total Bilirubin 1.2 mg/dl (0.2-1.3) 12/26/18 05:15 AST 42 U/L (17-59) 12/26/18 05:15 ALT 50 U/L (21-72) 12/26/18 05:15 Alkaline Phosphatase 99 U/L (38-126) 12/26/18 05:15 Troponin I 0.0350 ng/mL (0.00-0.120) 12/26/18 06:00 NT-Pro-B Natriuret Pep 6360 pg/ml (0-900) H 12/25/18 10:57 Total Protein 7.1 G/DL (6.3-8.2) 12/26/18 05:15 Albumin 3.8 g/dL (3.5-5.0) 12/26/18 05:15 Globulin 3.3 gm/dL (2.2-3.9) 12/26/18 05:15 Albumin/Globulin Ratio 1.1 (1.0-2.1) 12/26/18 05:15 Triglycerides 72 mg/DL (0-149) 12/25/18 14:54 Cholesterol 124 mg/dL (0-199) 12/25/18 14:54 LDL Cholesterol Direct 81 mg/dL (0-129) 12/25/18 14:54 HDL Cholesterol 29 MG/DL (30-70) L 12/25/18 14:54 TSH 3rd Generation 0.49 mIU/ML (0.46-4.68) 12/25/18 14:54 Venous Blood Potassium 4.0 mmol/L (3.6-5.2) 12/25/18 11:07 Urine Color Yellow (YELLOW) 12/25/18 15:00 Urine Clarity Slighty-cloudy (Clear) 12/25/18 15:00 Urine pH 6.0 (5.0-8.0) 12/25/18 15:00 Ur Specific [place] 1.017 (1.003-1.030) 12/25/18 15:00 Urine Protein 100 mg/dL (NEGATIVE) 12/25/18 15:00 Urine Glucose (UA) Neg mg/dL (NEGATIVE) 12/25/18 15:00 Urine Ketones Negative mg/dL (NEGATIVE) 12/25/18 15:00 Urine Blood Negative (NEGATIVE) 12/25/18 15:00 Urine Nitrate Negative (NEGATIVE) 12/25/18 15:00 Urine Bilirubin Negative (NEGATIVE) 12/25/18 15:00 Urine Urobilinogen 0.2-1.0 mg/dL (0.2-1.0) 12/25/18 15:00 Ur Leukocyte Esterase Neg Trudy/uL (Negative) 12/25/18 15:00 Urine RBC (Auto) 2 /hpf (0-3) 12/25/18 15:00 Urine Microscopic WBC 2 /hpf (0-5) 12/25/18 15:00 Ur Squamous Epith Cells < 1 /hpf (0-5) 12/25/18 15:00 Urine Bacteria Rare (<OCC) 12/25/18 15:00 Hyaline Casts 6-10 /hpf (0-2) H 12/25/18 15:00 Granular Casts (Auto) 3 /lpf (0-1) 12/25/18 15:00 Urine Opiates Screen Negative (NEGATIVE) 12/25/18 15:00 Urine Methadone Screen Negative (NEGATIVE) 12/25/18 15:00 Ur Barbiturates Screen Negative (NEGATIVE) 12/25/18 15:00 Ur Phencyclidine Scrn Negative (NEGATIVE) 12/25/18 15:00 Ur Amphetamines Screen Negative (NEGATIVE) 12/25/18 15:00 U Benzodiazepines Scrn Negative (NEGATIVE) 12/25/18 15:00 U Oth Cocaine Metabols Negative (NEGATIVE) 12/25/18 15:00 U Cannabinoids Screen Negative (NEGATIVE) 12/25/18 15:00 - Hospital Course Hospital Course: 63 y/o male with PMHx of HTN admitted for new onset CHF and atrial fibrillation with RVR. Echocardiogram demonstrated combined systolic and diastolic dysfunction with EF: 45% and pulmonary HTN. During hospital stay, patient was appropriately diuresed. Cardiology- Dr. Murphy was consulted. Patient's medications were optimized and he will have a Cardioversion with GRUPO as an outpatient for the atrial fibrillation with RVR. 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 Will be discharged with Eliquis 5mg po BID. Discharge Exam - Head Exam Head Exam: ATRAUMATIC, NORMAL INSPECTION, NORMOCEPHALIC - Eye Exam Eye Exam: Normal appearance - ENT Exam ENT Exam: Mucous Membranes Moist - Respiratory Exam Respiratory Exam: Clear to PA & Lateral, NORMAL BREATHING PATTERN, UNREMARKABLE. absent: Accessory Muscle Use, Chest Wall Tenderness, Decreased Breath Sounds, Prolonged Expiratory Phase, Rales, Rhonchi, Wheezes, Respiratory Distress, Stridor - Cardiovascular Exam Cardiovascular Exam: Irregular Rhythm, +S1, +S2 - GI/Abdominal Exam GI & Abdominal Exam: Normal Bowel Sounds, Soft, Unremarkable. absent: Diminished Bowel Sounds, Distended, Firm, Guarding, Rebound, Rigid, Tenderness - Extremities Exam Extremities exam: normal capillary refill, normal inspection, pedal pulses present - Neurological Exam Neurological exam: Alert, Oriented x3 - Psychiatric Exam Psychiatric exam: Normal Affect, Normal Mood - Skin Skin Exam: Dry, Intact, Normal Color, Warm Discharge Plan - Discharge Medications Prescriptions: Apixaban [Eliquis] 5 mg PO BID 30 Days #60 tab Atorvastatin [Lipitor] 20 mg PO HS 30 Days #30 tab Furosemide [Lasix] 40 mg PO DAILY 30 Days #30 tablet Lisinopril [Zestril] 10 mg PO DAILY 30 Days #30 tab Metoprolol Tartrate [Lopressor] 100 mg PO Q12 30 Days #60 tab - Follow Up Plan Condition: FAIR Disposition: HOME/ ROUTINE Patient education suggested?: Yes Instructions: Atrial Fibrillation (DC), Heart Failure, Adult (DC), Heart Failure (DC), Heart Failure (GEN), Pacemaker (DC), Pacemaker (GEN), Pulmonary Edema (DC), Pulmonary Edema (GEN), Ascites (DC), Ascites (GEN) Additional Instructions: follow up appt with on saturday12/30/18 8:45am 4 [facility] office Referrals: Shaan Murphy MD [Staff Provider] - <Max Ornelas - Last Filed: 12/27/18 19:12> Provider - Provider Date of Admission: 12/25/18 13:40 Attending physician: Max Ornelas MD Consults: 12/25/18 13:40 Cardiology Consult Stat Comment: Consulting Provider: Shaan Murphy Consulting Physician: Shaan Murphy Reason for Consult: afib and chf Hospital Course - Lab Results Lab Results: Micro Results 12/25/18 10:57 Blood Blood Culture - Preliminary NO GROWTH AFTER 48 HOURS 12/25/18 11:12 Blood Blood Culture - Preliminary NO GROWTH AFTER 48 HOURS 12/25/18 15:00 Urine Random Urine Culture - Final No Growth (<1,000 CFU/ML) Most Recent Lab Values WBC 14.7 K/uL (4.8-10.8) H 12/27/18 10:40 RBC 4.39 Mil/uL (4.40-5.90) L 12/27/18 10:40 Hgb 13.1 g/dL (12.0-18.0) 12/27/18 10:40 Hct 40.1 % (35.0-51.0) 12/27/18 10:40 MCV 91.3 fl (80.0-94.0) 12/27/18 10:40 MCH 29.9 pg (27.0-31.0) 12/27/18 10:40 MCHC 32.8 g/dL (33.0-37.0) L 12/27/18 10:40 RDW 14.5 % (11.5-14.5) 12/27/18 10:40 Plt Count 386 K/uL (130-400) 12/27/18 10:40 MPV 8.7 fl (7.2-11.7) 12/25/18 10:57 Neut % (Auto) 79.4 % (50.0-75.0) H 12/25/18 10:57 Lymph % (Auto) 14.0 % (20.0-40.0) L 12/25/18 10:57 Burnett % (Auto) 5.6 % (0.0-10.0) 12/25/18 10:57 Eos % (Auto) 0.4 % (0.0-4.0) 12/25/18 10:57 Baso % (Auto) 0.6 % (0.0-2.0) 12/25/18 10:57 Neut # (Auto) 7.7 K/uL (1.8-7.0) H 12/25/18 10:57 Lymph # (Auto) 1.4 K/uL (1.0-4.3) 12/25/18 10:57 Burnett # (Auto) 0.5 K/uL (0.0-0.8) 12/25/18 10:57 Eos # (Auto) 0.0 K/uL (0.0-0.7) 12/25/18 10:57 Baso # (Auto) 0.1 K/uL (0.0-0.2) 12/25/18 10:57 PT 14.5 Seconds (9.8-13.1) H 12/25/18 10:57 INR 1.3 12/25/18 10:57 APTT 32.0 Seconds (25.6-37.1) 12/25/18 10:57 pO2 71 mm/Hg (30-55) H 12/25/18 11:07 VBG pH 7.47 (7.32-7.43) H 12/25/18 11:07 VBG pCO2 32 mmHg (40-60) L 12/25/18 11:07 VBG HCO3 25.1 mmol/L 12/25/18 11:07 VBG Total CO2 24.3 mmol/L (22-28) 12/25/18 11:07 VBG O2 Sat (Calc) 96.5 % (40-65) H 12/25/18 11:07 VBG Base Excess 0.3 mmol/L (0.0-2.0) 12/25/18 11:07 VBG Potassium 4.0 mmol/L (3.6-5.2) 12/25/18 11:07 Sodium 137.0 mmol/L (132-148) 12/25/18 11:07 Chloride 106.0 mmol/L (98-107) 12/25/18 11:07 Glucose 111 mg/dL (75-110) H 12/25/18 11:07 Lactate 1.2 mmol/L (0.7-2.1) 12/25/18 11:07 FiO2 21.0 % 12/25/18 11:07 Sodium 136 mmol/l (132-148) 12/27/18 07:26 Potassium 4.0 MMOL/L (3.6-5.0) 12/27/18 07:26 Chloride 95 mmol/L (98-107) L 12/27/18 07:26 Carbon Dioxide 32 mmol/L (22-30) H 12/27/18 07:26 Anion Gap 13 (10-20) 12/27/18 07:26 BUN 45 mg/dl (9-20) H 12/27/18 07:26 Creatinine 1.3 mg/dl (0.8-1.5) 12/27/18 07:26 Est GFR ( Amer) > 60 12/27/18 07:26 Est GFR (Non-Af Amer) 55 12/27/18 07:26 POC Glucose (mg/dL) 115 mg/dL (65-110) H 12/27/18 05:30 Random Glucose 107 mg/dL (75-110) 12/27/18 07:26 Hemoglobin A1c 6.2 % (4.2-6.5) 12/25/18 14:54 Calcium 8.8 mg/dL (8.4-10.2) 12/27/18 07:26 Phosphorus 3.8 mg/dl (2.5-4.5) 12/25/18 10:57 Magnesium 1.9 MG/DL (1.6-2.3) 12/25/18 10:57 Total Bilirubin 1.2 mg/dl (0.2-1.3) 12/26/18 05:15 AST 42 U/L (17-59) 12/26/18 05:15 ALT 50 U/L (21-72) 12/26/18 05:15 Alkaline Phosphatase 99 U/L (38-126) 12/26/18 05:15 Troponin I 0.0350 ng/mL (0.00-0.120) 12/26/18 06:00 NT-Pro-B Natriuret Pep 6360 pg/ml (0-900) H 12/25/18 10:57 Total Protein 7.1 G/DL (6.3-8.2) 12/26/18 05:15 Albumin 3.8 g/dL (3.5-5.0) 12/26/18 05:15 Globulin 3.3 gm/dL (2.2-3.9) 12/26/18 05:15 Albumin/Globulin Ratio 1.1 (1.0-2.1) 12/26/18 05:15 Triglycerides 72 mg/DL (0-149) 12/25/18 14:54 Cholesterol 124 mg/dL (0-199) 12/25/18 14:54 LDL Cholesterol Direct 81 mg/dL (0-129) 12/25/18 14:54 HDL Cholesterol 29 MG/DL (30-70) L 12/25/18 14:54 TSH 3rd Generation 0.49 mIU/ML (0.46-4.68) 12/25/18 14:54 Venous Blood Potassium 4.0 mmol/L (3.6-5.2) 12/25/18 11:07 Urine Color Yellow (YELLOW) 12/25/18 15:00 Urine Clarity Slighty-cloudy (Clear) 12/25/18 15:00 Urine pH 6.0 (5.0-8.0) 12/25/18 15:00 Ur Specific [place] 1.017 (1.003-1.030) 12/25/18 15:00 Urine Protein 100 mg/dL (NEGATIVE) 12/25/18 15:00 Urine Glucose (UA) Neg mg/dL (NEGATIVE) 12/25/18 15:00 Urine Ketones Negative mg/dL (NEGATIVE) 12/25/18 15:00 Urine Blood Negative (NEGATIVE) 12/25/18 15:00 Urine Nitrate Negative (NEGATIVE) 12/25/18 15:00 Urine Bilirubin Negative (NEGATIVE) 12/25/18 15:00 Urine Urobilinogen 0.2-1.0 mg/dL (0.2-1.0) 12/25/18 15:00 Ur Leukocyte Esterase Neg Trudy/uL (Negative) 12/25/18 15:00 Urine RBC (Auto) 2 /hpf (0-3) 12/25/18 15:00 Urine Microscopic WBC 2 /hpf (0-5) 12/25/18 15:00 Ur Squamous Epith Cells < 1 /hpf (0-5) 12/25/18 15:00 Urine Bacteria Rare (<OCC) 12/25/18 15:00 Hyaline Casts 6-10 /hpf (0-2) H 12/25/18 15:00 Granular Casts (Auto) 3 /lpf (0-1) 12/25/18 15:00 Urine Opiates Screen Negative (NEGATIVE) 12/25/18 15:00 Urine Methadone Screen Negative (NEGATIVE) 12/25/18 15:00 Ur Barbiturates Screen Negative (NEGATIVE) 12/25/18 15:00 Ur Phencyclidine Scrn Negative (NEGATIVE) 12/25/18 15:00 Ur Amphetamines Screen Negative (NEGATIVE) 12/25/18 15:00 U Benzodiazepines Scrn Negative (NEGATIVE) 12/25/18 15:00 U Oth Cocaine Metabols Negative (NEGATIVE) 12/25/18 15:00 U Cannabinoids Screen Negative (NEGATIVE) 12/25/18 15:00 Attending/Attestation - Attestation I have personally seen and examined this patient.: Yes I have fully participated in the care of the patient.: Yes I have reviewed all pertinent clinical information, including history, physical exam and plan: Yes Notes (Text): 12/27/18 19:12 Patient seen and examined with resident. Case discussed and agreed with assessment. Patient discharged in stable condition.
--- NOTE | 2018-12-27 09:59 | PQF ---
PROVIDER RESPONSE TEXT: Persistent afib REVIEWER QUERY TEXT: Atrial Fibrillation Type Atrial fibrillation is documented in the Medical Record. Please specify the type if known after the work up is completed: i.e. -- Chronic -- Paroxysmal -- Permanent -- Persistent -- Other, please specify H and P includes: Atrial Fibrillation w RVR -EKG: Afib w RVR 143bpm -BP stable -CHADS-VASC: 2pts -c/w ASA -s/p cardizem bolus 10mg -currently on cardizem drip, 8mg/hr -initial troponin negative, trending Q6H -TSH/Lipid panel/Urine tox/Hba1c pending -tele monitoring -cardiology consult requested The patient's Clinical Indicators include: -- Query created by: Chiara Marshall on 12/26/2018 3:05 PM Electronically signed by: Nuvia Sandoval 12/27/2018 9:55 AM
--- NOTE | 2018-12-27 09:59 | PQF ---
PROVIDER RESPONSE TEXT: Combined systolic and diastolic dysfunction REVIEWER QUERY TEXT: Heart Failure Acuity and Type Congestive Heart Failure is documented in the Medical Record. Please document the type if known: Type: -- Combined systolic and diastolic (heart failure with reduced ejection fraction and diastolic) dysfu nction -- Diastolic (HFpEF) -- Systolic (HFrEF) -- Left heart failure -- Right heart failure -- Right heart failure due to left heart failure -- High output failure -- End stage heart failure -- Other, please specify 12/26: Echo report: The Left Ventricle is mildly dilated.The systolic function is mildly to moderately impaired.The estimated ejection fraction is -45% There is global hypokinesis of the left ventricle. The left ventricular diastolic function cannot be assessed due to underlying atrial fibrillation.The left atrium is severely dilated.There is severe mitral valve regurgitation noted.There is moderate tr icuspid valve regurgitation noted.RVSP is calculated at 50 mm Hg. The IVC is dilated in size and papito apses <50% with inspiration.See the full report in the EMR. H and P includes: Acute Onset CHF -uncertain if diastolic or systolic dysfunction -no prior history -Pro-BNP: 6360 -BUN/Cr: 27/1.1 -stable H/H, CMP wnl -CXR: mild cardiomegaly, air bronchograms, pulmon aram congestion -Echocardiogram pending -Lasix IV 40 mg Q12H -started CLAUDIA/Statin therapy -cardiology c onsult requested -repeat AM labs The patient's Clinical Indicators include: -- Query created by: Chiara Marshall on 12/26/2018 3:11 PM Electronically signed by: Nuvia Sandoval 12/27/2018 9:55 AM
[2018-12-27 10:48] LABS: HEMOGLOBIN 13.1 g/dL (12.0-18.0); MEAN CELL VOLUME 91.3 fl (80.0-94.0); MEAN CORPUSCULAR HEMOGLOBIN 29.9 pg (27.0-31.0); MEAN CORPUSCULAR HGB CONC 32.8 g/dL (33.0-37.0); RBC 4.39 Mil/uL (4.40-5.90); RED CELL DISTRIBUTION WIDTH 14.5 % (11.5-14.5); WHITE BLOOD COUNT 14.7 K/uL (4.8-10.8)
[2018-12-27 11:50] VITALS: BP 118/82; PULSE 100; TEMP 97.9; O2SAT 99
== END 2018-12-27 14:10 | disposition home or self-care (01) | DRG 194 ==
LOC: H.ER 09:53 → H.ERHOLD 13:40 → H.TEL 15:07
DX: I11.0 Hypertensive heart disease with heart failure (principal); I50.41 Acute combined systolic (congestive) and diastolic (congestive) heart failure; I48.1 Persistent atrial fibrillation; I27.20 Pulmonary hypertension, unspecified; I34.0 Nonrheumatic mitral (valve) insufficiency; Z79.01 Long term (current) use of anticoagulants; Z87.891 Personal history of nicotine dependence